=== PATIENT | male | born 1965 | race Two or more races ===

== ENCOUNTER → 2025-09-16 | Outpatient (CLI) | payer SELFPAY ==
[~2025-09-16] MED LIST: ALBUTEROL SULF 2.5 MG/0.5ML(0.5%) NEB SOLN ONE
== END | disposition home or self-care (01) ==
LOC: RT 08:52
PROVIDERS: ATTEND Internal Medicine Pulmonary Disease
DX: J44.9 Chronic obstructive pulmonary disease, unspecified (principal); R06.00 Dyspnea, unspecified
CPT/HCPCS: 94060; 94729